=== PATIENT | female | born 1990 ===

== ENCOUNTER → 2020-06-02 13:22 | Outpatient (CLI) | payer OTHER | END | disposition home or self-care (01) | LOC: LAB 13:22 | PROVIDERS: ATTEND Internal Medicine | DX: Z20.828 Contact with and (suspected) exposure to other viral communicable diseases (principal) ==

== ENCOUNTER 2020-06-18 11:00 | Outpatient (CLI) | payer OTHER | END 2020-06-18 15:00 | disposition home or self-care (01) | LOC: LAB 11:00 | DX: Z20.828 Contact with and (suspected) exposure to other viral communicable diseases (principal) ==